=== PATIENT | female | born 1960 | race Two or more races ===

== ENCOUNTER 2022-04-03 12:36 | Emergency (ER) | payer MEDICARE ==
[~2022-04-03] VITALS: Ht 152.4 cm; Wt 90.0 kg
[2022-04-03 13:15] VITALS: BP 145/106
[2022-04-03] MEDS ORDERED: LOSA-39 PO (13:42)
[2022-04-03] MEDS ORDERED: HYDR-4798 PO (13:42)
[2022-04-03] MEDS ORDERED: TOPI100T68 PO (13:42)
[2022-04-03] MEDS ORDERED: VENL150C58 PO (13:42)
[2022-04-03] MEDS ORDERED: AMLO-489 PO (13:42)
[2022-04-03] MEDS ORDERED: HYDROcodone-ACET 10/325MG TAB PO ONE (13:45)
== END 2022-04-03 13:54 | disposition home or self-care (01) ==
LOC: ER 12:36
DX: I10 Essential (primary) hypertension (principal); F32.9 Major depressive disorder, single episode, unspecified; G89.29 Other chronic pain; M62.830 Muscle spasm of back; F41.9 Anxiety disorder, unspecified; Z76.0 Encounter for issue of repeat prescription

== ENCOUNTER 2022-07-10 16:10 | Emergency (ER) | payer MEDICARE ==
[~2022-07-10] VITALS: Ht 152.4 cm; Wt 90.0 kg
[~2022-07-10 16:10] MED LIST: AMLO-489 PO; HYDR-4798 PO; LOSA-39 PO; TOPI100T68 PO; VENL150C58 PO
[2022-07-10 17:36] VITALS: BP 114/68
[2022-07-10] MEDS ORDERED: HYDROcodone-ACET 10/325MG TAB PO ONE (17:45)
[2022-07-10] MEDS ORDERED: HYDR-4798 PO (18:28)
== END 2022-07-10 18:34 | disposition home or self-care (01) ==
LOC: ER 16:10
DX: G89.29 Other chronic pain (principal); M54.50 Low back pain, unspecified; I10 Essential (primary) hypertension; F17.210 Nicotine dependence, cigarettes, uncomplicated; Z76.0 Encounter for issue of repeat prescription
CPT/HCPCS: 72100